=== PATIENT | male | born 1990 | race Caucasian/White ===

== ENCOUNTER 2018-04-19 02:04 | Emergency (ER) | payer BC ==
[~2018-04-19 02:04] MED LIST: ONDA8TAB94 PO
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
[2018-04-19 02:08] VITALS: BP 132/92
== END 2018-04-19 02:45 | disposition home or self-care (01) ==
LOC: ER 02:08
DX: S01.511A Laceration without foreign body of lip, initial encounter (principal); Y04.2XXA Assault by strike against or bumped into by another person, initial encounter
CPT/HCPCS: 99283